=== PATIENT | female | born 1985 | race Caucasian/White ===

== ENCOUNTER 2018-03-06 16:10 | Emergency (ER) | payer BC ==
[~2018-03-06] VITALS: Ht 172.7 cm; Wt 86.4 kg
[2018-03-06 16:13] VITALS: BP 138/86; TEMP 97.2
[2018-03-06] MEDS ORDERED: NEURONTIN600 MG/TAB PO (16:44)
[2018-03-06] MEDS ORDERED: ZYRTEC 10MG10 MG PO (16:44)
[2018-03-06] MEDS ORDERED: ATARAX50 MG PO (17:00)
[2018-03-06 17:07] VITALS: PULSE 101
== END 2018-03-06 17:07 | disposition home or self-care (01) ==
LOC: COL.ER 16:10
DX: R45.1 Restlessness and agitation (principal); R11.0 Nausea; F32.9 Major depressive disorder, single episode, unspecified; F41.9 Anxiety disorder, unspecified; F17.210 Nicotine dependence, cigarettes, uncomplicated

== ENCOUNTER 2018-03-22 11:59 | Emergency (ER) | payer BC ==
[~2018-03-22] VITALS: Ht 172.7 cm; Wt 86.4 kg
[~2018-03-22 11:59] MED LIST: ATARAX50 MG PO; NEURONTIN600 MG/TAB PO; ZYRTEC 10MG10 MG PO
[2018-03-22 12:08] VITALS: BP 138/88; PULSE 87; TEMP 98.6
[2018-03-22] MEDS ORDERED: CYMBALTA 30MG30 MG (12:12)
== END 2018-03-22 13:14 | disposition home or self-care (01) ==
LOC: COL.ER 11:59
DX: G89.29 Other chronic pain (principal); M54.5 Low back pain; F17.210 Nicotine dependence, cigarettes, uncomplicated; Z98.890 Other specified postprocedural states
CPT/HCPCS: J1885

== ENCOUNTER 2019-03-17 14:34 | Emergency (ER) | payer BC, MEDICAID ==
[~2019-03-17] VITALS: Ht 170.2 cm; Wt 102.3 kg
[~2019-03-17 14:34] MED LIST changes: +CYMBALTA 30MG30 MG
[2019-03-17 14:35] VITALS: TEMP 95.8
[2019-03-17] MEDS ORDERED: NEURONTIN600 MG/TAB PO (14:46)
[2019-03-17 15:06] LABS: ARTERIAL BLD GAS O2 SATURATION 96.2 % (92-100); ARTERIAL BLD GAS TCO2 CT 25.8; ARTERIAL BLOOD GAS BASE EXCESS -0.5 (-2-2); ARTERIAL BLOOD GAS HCO3 24.6 meq/L (22-26); ARTERIAL BLOOD GAS PCO2 41.8 mmHg (35-45); ARTERIAL BLOOD GAS PO2 85.5 mmHg (80-100); ARTERIAL BLOOD GAS pH 7.39 (7.35-7.45)
[2019-03-17 15:26] LABS: BASO # 0.1 (0.0-0.2); BASO % 0.6 % (0.0-2.0); EOS # 0.2 (0.0-0.7); EOS % 1.2 % (0-4.0); GRAN # 13.5 (1.4-6.5); GRAN % 79.4 % (42.2-75.2); HEMATOCRIT 43.6 % (37.0-47.0); HEMOGLOBIN 14.6 g/dl (12.5-16.0); LYMPH # 2.4 (1.2-3.4); LYMPH % 13.8 % (20.0-51.0); MEAN CELL VOLUME 88 fl (80.0-100.0); MEAN CORPUSCULAR HEMOGLOBIN 30 pg (27.0-31.0); MEAN CORPUSCULAR HGB CONC 34 g/dl (33.0-37.0); MEAN PLATELET VOLUME 10.1 fl (7.4-10.4); MONO # 0.8 (0.1-0.6); MONO % 4.5 % (1.7-9.3); PLATELET COUNT 291 K/mm3 (130-400); RED BLOOD COUNT 4.95 M/mm3 (4.10-5.30); REDCELL DISTRIBUTION WIDTH-CV 13.5 % (11.5-14.5)
[2019-03-17 15:35] LABS: ALANINE AMINOTRANSFERASE 27 U/L (9-52); ALBUMIN 3.6 gm/dL (3.5-5.0); ALKALINE PHOSPHATASE 47 U/L (50-136); ANION GAP 8 mmol/L (7-16); AST,SGOT 24 U/L (15-37); BILIRUBIN,TOTAL 0.2 mg/dL (0.0-1.0); BLOOD UREA NITROGEN 11 mg/dL (7-17); C-REACTIVE PROTEIN 0.6 mg/dL (0.0-0.9); CALCIUM 8.9 mg/dL (8.4-10.2); CARBON DIOXIDE 28 mmol/L (22-30); CHLORIDE 103 mmol/L (98-107); CREATININE, serum 0.88 (0.52-1.25); GLUCOSE 108 mg/dL (74-106); SODIUM 138 mmol/L (137-145); TOTAL PROTEIN 6.1 gm/dL (6.4-8.2)
[2019-03-17 15:37] LABS: ALCOHOL(ethanol),MEDICAL < 10 mg/dL
[2019-03-17 15:39] LABS: COLLECTION METHOD CLEAN CATCH
[2019-03-17 16:00] LABS: TRICYCLIC ANTIDEPRESS URINE NEGATIVE
[2019-03-17 16:01] LABS: MUCOUS Present /lpf; PH 5 (5-8); URINE APPEARANCE Hazy; URINE BACTERIA None Seen /hpf; URINE BILIRUBIN Negative (NEGATIVE); URINE BLOOD Negative (NEGATIVE); URINE COLOR Yellow; URINE GLUCOSE 1+ (NEGATIVE); URINE KETONE Trace (NEGATIVE); URINE LEUKOCYTE ESTERASE Negative (NEGATIVE); URINE NITRATE Negative (NEGATIVE); URINE PROTEIN(semi-quant) 2+ (NEGATIVE); URINE RBC 0-2 /hpf; URINE UROBILINOGEN Negative (NEGATIVE)
[2019-03-17 17:03] VITALS: BP 121/80; PULSE 95
== END 2019-03-17 17:05 | disposition home or self-care (01) ==
LOC: COL.ER 14:34
PROVIDERS: Emergency Medicine
DX: T40.2X1A Poisoning by other opioids, accidental (unintentional), initial encounter (principal); F17.210 Nicotine dependence, cigarettes, uncomplicated; Z98.51 Tubal ligation status
CPT/HCPCS: J7030